=== PATIENT | male | born 1960 ===

== ENCOUNTER 2023-02-25 21:02 | Emergency (ER) | payer SELFPAY ==
[2023-02-25] MEDS ORDERED: Acetaminophen/oxyCODONE 325-5 MG Tab PO ONE (21:56)
[2023-02-25] MEDS ORDERED: Take Home: Acetaminophen/HYDROcodone 325-5 MG, 5 Tab Pack PO ONE (22:31)
[2023-02-25] MEDS ORDERED: Iopamidol 612 MG/ML 100 ML Bottle IVPUSH ONE (22:36)
== END 2023-02-25 23:26 | disposition home or self-care (01) ==
LOC: DL.ED 21:02
DX: S42.017A Nondisplaced fracture of sternal end of right clavicle, initial encounter for closed fracture (principal); S27.892A Contusion of other specified intrathoracic organs, initial encounter; V80.010A Animal-rider injured by fall from or being thrown from horse in noncollision accident, initial encounter
CPT/HCPCS: 70450; 71045; 71260; 72125; 99284; A9270-GY; Q9967